=== PATIENT | female | born 1955 | race Caucasian/White ===

== ENCOUNTER → 2018-01-04 | Outpatient (CLI) | payer BC ==
--- NOTE | 2018-01-11 15:40 | MM ---
Reason for exam: screening (asymptomatic). Last mammogram was performed 2 years and 5 months ago. History: Patient is postmenopausal and has history of other cancer at age 55. Took hormonal contraceptives for 1 year. MG Screening Mammo w CAD Bilateral CC and MLO view(s) were taken. Prior study comparison: August 10, 2015, bilateral MG screening mammo w CAD. March 12, 2013, CAD bilateral diagnostic mammogram. The breast tissue is heterogeneously dense. This may lower the sensitivity of mammography. There are similar appearing left axillary calcifications and right benign appearing calcification. No suspicious abnormality. No significant changes when compared with prior studies. ASSESSMENT: Benign, BI-RAD 2 RECOMMENDATION: Routine screening mammogram of both breasts in 1 year.
== END | disposition home or self-care (01) ==
LOC: RADMAMWWP 13:36
PROVIDERS: ATTEND Family Medicine
DX: Z12.31 Encounter for screening mammogram for malignant neoplasm of breast (principal)
CPT/HCPCS: 77067

== ENCOUNTER → 2019-06-11 | Outpatient (CLI) | payer BC ==
--- NOTE | 2019-06-13 13:46 | MM ---
Reason for exam: screening (asymptomatic). Last mammogram was performed 1 year and 5 months ago. History: Patient is postmenopausal and has history of other cancer at age 55. Took hormonal contraceptives for 1 year. Physical Findings: A clinical breast exam by your physician is recommended on an annual basis and results should be correlated with mammographic findings. MG Screening Mammo w CAD Bilateral CC and MLO view(s) were taken. Prior study comparison: January 04, 2018, bilateral MG screening mammo w CAD. August 10, 2015, bilateral MG screening mammo w CAD. The breast tissue is heterogeneously dense. This may lower the sensitivity of mammography. No significant changes when compared with prior studies. ASSESSMENT: Benign, BI-RAD 2 RECOMMENDATION: Routine screening mammogram of both breasts in 1 year.
== END | disposition home or self-care (01) ==
LOC: RADMAMWWP 13:28
PROVIDERS: ATTEND Family Medicine
DX: Z12.31 Encounter for screening mammogram for malignant neoplasm of breast (principal)
CPT/HCPCS: 77067

== ENCOUNTER → 2020-01-02 | Outpatient (CLI) | payer BC | END | disposition home or self-care (01) | LOC: LABWHC1 09:57 | PROVIDERS: ATTEND Family Medicine | DX: Z11.59 Encounter for screening for other viral diseases (principal) | CPT/HCPCS: U0003; C9803 ==

== ENCOUNTER → 2022-08-08 | Outpatient (CLI) | payer MEDICARE, BC ==
--- NOTE | 2022-08-09 08:23 | MM ---
Reason for Exam: Screening (asymptomatic). Last mammogram was performed 3 year(s) and 2 month(s) ago. Patient History: Menarche at age 15. First Full-Term at age 28. Postmenopausal. Patient has history of breast feeding. Patient used Hormonal Contraceptives for 1 year. Risk Values: Anita 5 year model risk: 1.8%. NCI Lifetime model risk: 6.9%. Prior Study Comparison: 08/10/2015 Bilateral Screening Mammogram, [facility]. 01/04/2018 Bilateral Screening Mammogram, [facility]. 06/11/2019 Bilateral Screening Mammogram, [facility]. Tissue Density: There are scattered fibroglandular densities. Findings: Analyzed By CAD. There is no suspicious group of microcalcifications or new suspicious mass in either breast. Overall Assessment: Negative, BI-RAD 1 Management: Screening Mammogram of both breasts in 1 year. A clinical breast exam by your physician is recommended on an annual basis and results should be correlated with mammographic findings. [facility] will attempt to contact patient to return for supplemental views and ultrasound if indicated. Electronically signed and approved by: Stephen Torrez DO
--- NOTE | 2022-08-10 15:34 | BD ---
EXAMINATION TYPE: Axial Bone Density DATE OF EXAM: 08/08/2022 Comparison 06/16/2010 CLINICAL HISTORY: 67 years year old Female. ICD-10 CODE: Z13.820 SCREENING FOR OSTEOPOROSIS Height: 62.25 Weight: 116 FRAX RISK QUESTIONS: Alcohol (3 or more units per day): yes Family History (Parent hip fracture): no Glucocorticoids (More than 3mos): no History of Fracture in Adulthood: Forearm, Bilat Wrists Secondary Osteoporosis: 1. Type 1 Diabetes: no 2. Hyperthyroidism: no 3. Menopause before 45: no 4. Malnutrition: no 5. Chronic liver disease: no Rheumatoid Arthritis: no Current Tobacco Use: no RISK FACTORS HISTORY OF: Hip Fracture (Right/Left): no Spine Fracture: no History of Wrist Fracture: bilateral wrist When: age 58 Surgery to Spine/Hip(right/left)/Wrist (right/left): no Family History of Osteoporosis: no Active: yes Diet low in dairy products/other sources of calcium: yes Postmenopausal woman: yes Take estrogen and/or progesterone medications: no Lost more than 2 inches in height since high school: no Frequent falls: yes Poor Health: no Hyperparathyroidism: no Adrenal Insufficiency: no MEDICATIONS: Prednisone or other steroids: no Thyroid Medications:no Osteoporosis Medications: no Additional Medications: Methylphenida, Fluoxetine, , Vit D, Magnesium, Multi Vit., Vit B12 Additional History: EXAM MEASUREMENTS: Bone mineral densitometry was performed using the [employer] System. Bone mineral density as measured about the Lumbar spine is: ----- L1-L4(G/cm2): 1.139 T Score Values are as follows: ----- L1: -1.1 ----- L2: -0.2 ----- L3: -0.1 ----- L4: -0.2 ----- L1-L4: -0.3 Z Score Values are as follows: ----- L1: 0.9 ----- L2: 1.9 ----- L3: 2.0 ----- L4: 1.8 ----- L1-L4: 1.7 Bone mineral density has: -3.4 % since study of: 06/16/2010 Bone mineral density about the R hip (g/cm2): 0.786 Bone mineral density about the L hip (g/cm2): 0.781 T Score values are as follows: -----R Neck: -1.5 -----L Neck: -1.9 -----R Total: -1.8 -----L Total: -1.8 Z Score values are as follows: -----R Neck: -0.1 -----L Neck: 0.3 -----R Total: 0.1 -----L Total: 0.5 Bone mineral density has: Decreased -11.1 % since study of: 06/16/2010 FRAX%s: The graph provided illustrates a 10.9% chance for a major osteoporotic fx and a 2.2% chance f or the hips probability for fx in 10 years time. IMPRESSION: Osteopenia (T Score between -2.5 and -1). There is slightly increased risk of fracture and the patient may be considered for treatment. Re-Screen 2-5 years. NOTE: T-SCORE=SD OF THE YOUNG ADULT MEAN.
== END | disposition home or self-care (01) ==
LOC: RADMAMWWP 14:42
PROVIDERS: ATTEND Family Medicine
DX: Z12.31 Encounter for screening mammogram for malignant neoplasm of breast (principal); Z13.820 Encounter for screening for osteoporosis; M85.89 Other specified disorders of bone density and structure, multiple sites; Z78.0 Asymptomatic menopausal state
CPT/HCPCS: 77063; 77067; 77080

== ENCOUNTER → 2023-08-22 | Outpatient (CLI) | payer MEDICARE, BC ==
--- NOTE | 2023-08-22 13:45 | CA ---
Stress Echo Report Nimo Zhu Age: 68 Gender: F : 1955 Exam Date: 08/22/2023 09:50 Exam Location: [place] Stress Ht (in): 63 Wt (lb): 110 Ordering Physician: Hallie Leonard MD Referring Physician: Chrissy Choudhury Precision Grinder: EDUARDO Technologist Procedure CPT: Indication: I10 HTN, Z13.6 SCREENING ICD-9 Codes: Rhythm: Patient History: Cardiac Medications: HZTZ,,,,,, FLUOXETINE,,,,,, VYVANSE,,,,,, MULTIVITAMIN,,,,,, VIT D-3,,,,,, VIT B COMPLEX,,,,,, MILK THISTLE,,,,,, MAGNESIUM,,,,, Medications in past 24 hours: Contrast: N/A Stress Results Protocol: Hans Total dose(mL): NA Exercise Duration (min:sec): 11:[address] Depression (mm): Angina Score: George Score: METS: 12.1 Resting HR: 74 Resting BP: 123 / 79 Peak HR: 159 Peak BP: 162 / 73 Max Predicted HR: 154 103 % Max Predicted HR Target HR: 131 Double Product: [id number] Stress Summary: The patient's target heart rate was achieved BP Response: Normal Reason for Termination: MAX EXERTION/TARGET HR Cardiac Symptoms: NO SYMPTOMS ECG Analysis Resting ECG: Normal sinus rhythm, normal ECG Stress ECG: No abnormal ST/T wave changes with exercise Arrhythmia: None Echo Analysis Resting Echo: Normal resting echocardiogram. Peak Echo Analysis: Normal treadmill stress echocardiogram. MEASUREMENTS (Male/Female) Normal Values CONCLUSIONS 1. Excellent exercise tolerance with normal electrocardiographic response to exercise 2. Normal stress echocardiogram with no evidence of stress induced ischemia. Dr. Phylicia Lucia MD (Electronically Signed) Final Date: 22 August 2023 13:45
== END | disposition home or self-care (01) ==
LOC: RADNMMAIN 09:11
PROVIDERS: ATTEND Family Medicine
DX: I10 Essential (primary) hypertension (principal); Z13.6 Encounter for screening for cardiovascular disorders
CPT/HCPCS: 93351

== ENCOUNTER → 2024-11-13 | Outpatient (CLI) | payer MEDICARE, BC ==
--- NOTE | 2024-11-13 16:32 | BD ---
EXAMINATION TYPE: Axial Bone Density DATE OF EXAM: 11/13/2024 CLINICAL HISTORY: 69 years old Female. ICD-10 CODE: Z78.0 MENOPAUSAL , Additional History: Height: 5ft 2 1/2 in Weight: 113 FRAX RISK QUESTIONS: Alcohol (3 or more units per day): no Family History (Parent hip fracture): no Glucocorticoids (More than 3mos): no (Ex: prednisone, prednisolone, methylprednisolone, dexamethasone, and hydrocortisone). History of Fracture in Adulthood: yes Secondary Osteoporosis: 1. Type 1 Diabetes: no 2. Hyperthyroidism: no 3. Menopause before 45: no 4. Malnutrition: no 5. Chronic liver disease: no Rheumatoid Arthritis: no Current Tobacco Use: no RISK FACTORS HISTORY OF: wrist fx): possible ahmet wrist fx When: 16 years ago MEDICATIONS: Thyroid Medications: none Osteoporosis Medications: none EXAM MEASUREMENTS: Bone mineral densitometry was performed using the [employer] System. Bone mineral density as measured about the Lumbar spine is: ----- L1-L4(G/cm2): 1.055 T Score Values are as follows: ----- L1: -1.4 ----- L2: -1.2 ----- L3: -0.8 ----- L4: -1.0 ----- L1-L4: -1.0 Z Score Values are as follows: ----- L1: 0.7 ----- L2: 0.8 ----- L3: 1.3 ----- L4: 1.1 ----- L1-L4: 1.0 Bone mineral density has: decreased -7.6 % since study of: 2022 Bone mineral density about the R hip (g/cm2): 0.792 Bone mineral density about the L hip (g/cm2): 0.776 T Score values are as follows: -----R Neck: -1.8 -----L Neck: -1.9 -----R Total: -2.0 -----L Total: -2.0 Z Score values are as follows: -----R Neck: 0.1 -----L Neck: 0.0 -----R Total: -0.4 -----L Total: -0.4 Bone mineral density has: decreased -4.0 % since study of: 2022 FRAX%s: The graph provided illustrates a 18.9 % chance for a major osteoporotic fx and a 4.0 % chance for the hips probability for fx in 10 years time. IMPRESSION: Osteopenia (T Score between -2.5 and -1). There is slightly increased risk of fracture and the patient may be considered for treatment. Re-Screen 2-5 years. NOTE: T-SCORE=SD OF THE YOUNG ADULT MEAN. [facility], , 11/13/2024 4:30 PM
--- NOTE | 2024-11-13 16:49 | MM ---
Reason for Exam: Screening (asymptomatic). Last mammogram was performed 2 year(s) and 3 month(s) ago. Patient History: Menarche at age 15. First Full-Term at age 28. Postmenopausal. Patient has history of breast feeding. Patient used Hormonal Contraceptives for 1 year. Risk Values: Anita 5 year model risk: 1.9%. NCI Lifetime model risk: 6.4%. Prior Study Comparison: 01/04/2018 Bilateral Screening Mammogram, [facility]. 06/11/2019 Bilateral Screening Mammogram, [facility]. 08/08/2022 Bilateral MG 3D screening mammo w/cad, [facility]. Tissue Density: There are scattered areas of fibroglandular density. Findings: Analyzed By CAD. Unchanged bilateral areas of asymmetric density. There is no suspicious group of microcalcifications or new suspicious mass in either breast. Overall Assessment: Benign, BI-RAD 2 Management: Screening Mammogram of both breasts in 1 year. Patient should continue monthly self-breast exams. A clinical breast exam by your physician is recommended on an annual basis. This exam should not preclude additional follow-up of suspicious palpable abnormalities. Note on Anita scores and lifetime risk: 1. A Anita score greater than 3% is considered moderate risk. If this is the case, consider specialist referral to assess eligibility for a risk reducing agent. 2. If overall lifetime risk for the development of breast cancer is 20% or higher, the patient may qualify for future screening with alternating mammogram and breast MRI. [facility], , 11/13/2024 4:45 PM. Electronically signed and approved by: Sally Sandhu M.D. Radiologist
== END | disposition home or self-care (01) ==
LOC: RADMAMWWP 15:53
PROVIDERS: ATTEND Family Medicine
DX: Z12.31 Encounter for screening mammogram for malignant neoplasm of breast (principal); R92.323 Mammographic fibroglandular density, bilateral breasts; M85.89 Other specified disorders of bone density and structure, multiple sites; Z78.0 Asymptomatic menopausal state; Z92.0 Personal history of contraception
CPT/HCPCS: 77063; 77067; 77080